=== PATIENT | male | born 1950 | race African-American/Black ===

== ENCOUNTER 2024-06-20 09:32 | Emergency (ER) | payer OTHER, MEDICAID ==
[~2024-06-20] VITALS: Ht 177.8 cm; Wt 127.0 kg
[2024-06-20 09:35] VITALS: O2SAT 99
[2024-06-20 10:15] LABS: BASOPHILS % 0.7 % (0.0-2.0); HEMATOCRIT. 40.4 % (42.0-52.0); HEMOGLOBIN. 13.2 g/dL (14.0-18.0); LYMPHOCYTES % 47.1 % (20.0-50.0); MEAN CORPUSCULAR HEMOGLOBIN 27.4 pg (28.0-32.0); MEAN CORPUSCULAR HGB CONC 32.7 g/dL (31.0-37.0); MEAN CORPUSCULAR VOLUME 83.9 fL (80.0-94.0); MEAN PLATELET VOLUME 9.1 fl (7.4-10.4); MONOCYTES % 6.9 % (2.0-8.0); NEUTROPHILS % 44.3 % (40.0-76.0); PLATELET 87 x1000/uL (130-400); RED BLOOD CELL COUNT 4.81 mill/uL (4.7-6.1); RED CELL DISTRIBUTION WIDTH 16.5 % (11.6-14.6); WHITE BLOOD COUNT 4.2 x1000/uL (4.5-11.0)
[2024-06-20 10:21] LABS: CARBON DIOXIDE 27 mEq/L (21-32); CHLORIDE 103 mEq/L (98-107); POTASSIUM 3.7 mEq/L (3.5-5.1); SODIUM 139 mEq/L (136-145)
[2024-06-20 10:22] LABS: CALCIUM 9.4 mg/dL (8.7-10.4)
[2024-06-20 10:27] LABS: CREATININE 1.6 mg/dL (0.6-1.3); GLUCOSE 138 mg/dL (70-105); UREA NITROGEN BLOOD 14 mg/dL (9-23)
[2024-06-20] MEDS: SODIUM CHLORIDE 0.9% 1,000 ML IV ONE (10:33)
[2024-06-20] MEDS: ONDANSETRON HCL 4MG/2ML INJ IV STA (10:33)
[2024-06-20] MEDS: MECLIZINE 25MG TABLET PO ONE (10:33)
[2024-06-20 10:47] LABS: TROPONIN I HIGH SENSITIVITY 55 ng/L (3.0-53)
[2024-06-20 14:16] VITALS: BP 139/76; PULSE 78; RESP 14; TEMP 36.9; O2SAT 96
[2024-06-20] MEDS: DIPHENHYDRAMINE 50MG/ML VIAL IV ONE (14:16)
== END 2024-06-20 14:10 | disposition short-term general hospital (02) ==
LOC: ER 09:32
DX: R42 Dizziness and giddiness (principal); E11.9 Type 2 diabetes mellitus without complications; I10 Essential (primary) hypertension; I67.82 Cerebral ischemia
CPT/HCPCS: 99285; 96374; 70450; 71045; 80048; 83880; 85025; 84484; 36415; 93005; J8597; J2405; J7030; 99284; A4606

== ENCOUNTER 2024-10-21 18:18 | Inpatient (IN) | payer OTHER, MEDICAID ==
[~2024-10-21] VITALS: Ht 175.3 cm; Wt 113.4 kg
[2024-10-21 19:05] LABS: HEMATOCRIT. 25.5 % (42.0-52.0); HEMOGLOBIN. 8.4 g/dL (14.0-18.0); MEAN PLATELET VOLUME 10.1 fl (7.4-10.4); RED BLOOD CELL COUNT 2.65 mill/uL (4.7-6.1); RED CELL DISTRIBUTION WIDTH 20.0 % (11.6-14.6)
[2024-10-21 19:09] LABS: PLATELET 13 x1000/uL (130-400)
[2024-10-21 19:13] LABS: TROPONIN I HIGH SENSITIVITY 35 ng/L (3.0-53); UREA NITROGEN BLOOD 47 mg/dL (9-23)
[2024-10-21 19:15] LABS: ASPARTATE AMINOTRANSFERASE 46 IU/L (<34); BILIRUBIN DIRECT 0.8 mg/dL (<=3.0)
[2024-10-21 19:16] LABS: BILIRUBIN TOTAL 1.7 mg/dL (0.1-1.0); PROTEIN TOTAL 8.4 g/dL (6.0-8.3)
[2024-10-21 19:21] LABS: CREATININE 3.2 mg/dL (0.6-1.3)
[2024-10-21 19:26] LABS: INR 1.1
[2024-10-21 19:45] LABS: BASOPHILS % MANUAL 1.0 % (0.0-2.0); LYMPHOCYTES % MANUAL 44.0 % (20.0-50.0); MONOCYTES % MANUAL 17.0 % (2.0-8.0); NEUTROPHILS % MANUAL 38.0 % (45.0-75.0)
[2024-10-21 19:47] LABS: PLATELET ESTIMATE MARKEDLY DECREASED
[2024-10-21] MEDS: SODIUM CHLORIDE 0.9% 500 ML IV ONE (20:03)
[2024-10-22] VITALS (7 sets, daily range): BP systolic 95–139; BP diastolic 48–64; PULSE 96–126; RESP 15–46; TEMP 36.5848–37.7; O2SAT 92–100
[2024-10-22] MEDS ORDERED: VANCOMYCIN 1G PREMIX 200 ML IV ONE (00:15)
[2024-10-22] MEDS: SODIUM CHLORIDE 0.9% (SEPSIS BOLUS) IV NR (00:48)
[2024-10-22] MEDS: PIPERACILLIN/TAZO 3.375G/50ML 50 ML IV NR (00:49)
[2024-10-22] MEDS: AZITHROMYCIN 500MG/250ML 250 ML IV NR (01:29)
[2024-10-22] MEDS ORDERED: CEFEPIME 1GM IN DEXT 5% 50ML IV SCH (01:45)
[2024-10-22] MEDS ORDERED: ONDANSETRON HCL 4MG/2ML INJ IV PRN (01:45)
[2024-10-22] MEDS ORDERED: MAGNESIUM/ALUMINUM HYDROXIDE/SIMETHICONE 30ML UDC PO PRN (01:45)
[2024-10-22] MEDS ORDERED: ACETAMINOPHEN 325MG TABLET PO PRN (01:45)
[2024-10-22] MEDS: SODIUM CHLORIDE 0.9% 1,000 ML IV SCH (04:21)
[2024-10-22] MEDS: VANCOMYCIN IV NR (04:30)
[2024-10-22] MEDS ORDERED: NALOXONE HCL 0.4MG/ML VIAL IV PRN (09:30)
[2024-10-22] MEDS: PANTOPRAZOLE SODIUM 40 MG/VIAL IV SCH (09:38)
[2024-10-22] MEDS: CEFEPIME 1GM PREMIX 50ML IV SCH (09:38)
[2024-10-22 12:46] LABS: BG BASE EXCESS -8.3 mmol/L (-2.0-3.0); BG CARBOXYHEMOGLOBIN 0.8 % (0.5-1.5); BG DEOXYHEMOGLOBIN 1.8 % (0.0-5.0); BG FLOW(L/min) 10.00 L/min; BG FRACTION INSPIRED OXYGEN 60; BG HCO3 ACT 15.4 mmol/L (21.0-28.0); BG METHEMOGLOBIN 0.3 % (0.5-1.5); BG OXYGEN SATURATION 98.2 % (94.0-98.0); BG OXYHEMOGLOBIN 97.1 % (94.0-98.0); BG PCO2 24.8 mmHg (35.0-48.0); BG PH 7.410 (7.350-7.450); BG PO2 114.8 mmHg (83.0-108.0); BG SAMPLE SITE LEFT RADIAL; BG TOTAL HEMOGLOBIN 7.3 g/dL (13.5-17.5); BG VENT MODE MASK - SIMPLE
[2024-10-22 17:37] LABS: HEMATOCRIT. 23.5 % (42.0-52.0); HEMOGLOBIN. 7.7 g/dL (14.0-18.0); MEAN PLATELET VOLUME 9.6 fl (7.4-10.4); RED BLOOD CELL COUNT 2.45 mill/uL (4.7-6.1); RED CELL DISTRIBUTION WIDTH 19.4 % (11.6-14.6)
[2024-10-22 17:44] LABS: CREATININE 2.8 mg/dL (0.6-1.3)
[2024-10-22 17:45] LABS: UREA NITROGEN BLOOD 51.0 mg/dL (9-23)
[2024-10-22 17:49] LABS: PLATELET 13 x1000/uL (130-400)
[2024-10-22 18:01] LABS: CLARITY URINE CLOUDY (CLEAR); COLOR URINE DARK YELLOW (YELLOW); GLUCOSE URINE NEGATIVE (NEGATIVE); KETONES URINE TRACE (NEGATIVE); LEUKOCYTE ESTERASE URINE NEGATIVE (NEGATIVE); NITRITE URINE NEGATIVE (NEGATIVE); OCCULT BLOOD URINE NEGATIVE (NEGATIVE); PH URINE 5.5 (4.5-8.0); PROTEIN URINE 1+ (NEGATIVE); SPECIFIC GRAVITY URINE 1.023 (1.005-1.030); UROBILINOGEN URINE 1.0 E.U./dL (0.2-1.0)
[2024-10-22 18:09] LABS: BACTERIA URINE 2+; RBC URINE 0-2 /hpf (0-2); SQUAMOUS EPITHELIAL CELL URINE RARE /lpf (RARE/1+); WBC URINE 0-2 /hpf (0-2)
[2024-10-22 18:12] LABS: FINE GRANULAR CASTS URINE 0-5 /lpf
[2024-10-22 18:15] LABS: *AMPHETAMINES SCREEN URINE NEGATIVE (NEGATIVE); *BARBITURATES SCREEN URINE NEGATIVE (NEGATIVE); *BENZODIAZEPINES SCREEN URINE NEGATIVE (NEGATIVE); *COCAINE SCREEN URINE NEGATIVE (NEGATIVE); CANNABINOID URINE SCREEN NEGATIVE (NEGATIVE); ECSTASY MDMA SCREEN URINE NEGATIVE (NEGATIVE); METHADONE URINE SCREEN NEGATIVE (NEGATIVE); OPIATES URINE SCREEN NEGATIVE (NEGATIVE); PHENCYCLIDINE URINE SCREEN NEGATIVE (NEGATIVE)
[2024-10-22 18:23] LABS: BAND% 9.0 % (1.0-6.0); LYMPHOCYTES % MANUAL 39.0 % (20.0-50.0); METAMYELOCYTES % 1.0 % (0-0); MONOCYTES % MANUAL 19.0 % (2.0-8.0); MYELOCYTES % 2.0 % (0-0); NEUTROPHILS % MANUAL 30.0 % (45.0-75.0); PLATELET ESTIMATE MARKEDLY DECREASED
[2024-10-22] MEDS: METHYLPREDNISOLONE SOD SUCC 40MG/ML (ACT-O-VIAL) IV SCH (19:16)
[2024-10-22] MEDS: FUROSEMIDE 40MG/4ML VIAL IVP SCH (19:17)
[2024-10-22] MEDS: FILGRASTIM-TBO 300 MCG/0.5 ML SYRINGE SQ NR (21:39)
[2024-10-22] MEDS: IPRATROPIUM/ALBUTEROL 0.5-3(2.5)MG/3ML NEB HHN SCH (22:26)
[2024-10-23] VITALS (34 sets, daily range): BP systolic 71–153; BP diastolic 37–102; PULSE 90–140; RESP 20–50; TEMP 36.6–39.3; O2SAT 50–100
[2024-10-23] MEDS: FUROSEMIDE 40MG/4ML VIAL IVP NR (00:45)
[2024-10-23] MEDS: HYDROCODONE/ACETAMINOPHEN 5/325MG TABLET PO PRN (01:15)
[2024-10-23] MEDS: SODIUM CHLORIDE 0.9% 1,000 ML IV SCH (01:16)
[2024-10-23] MEDS: AZITHROMYCIN 500MG/250ML 250 ML IV SCH (02:26)
[2024-10-23] MEDS: DIGOXIN 500MCG/2ML AMP IV NR (06:44)
[2024-10-23] MEDS: DILTIAZEM HCL 5MG/ML 5ML VIAL IV NR (06:45)
[2024-10-23 07:32] LABS: CREATININE 2.9 mg/dL (0.6-1.3); HEMATOCRIT. 22.8 % (42.0-52.0); HEMOGLOBIN. 7.5 g/dL (14.0-18.0); MEAN PLATELET VOLUME 9.7 fl (7.4-10.4); RED BLOOD CELL COUNT 2.35 mill/uL (4.7-6.1); RED CELL DISTRIBUTION WIDTH 20.2 % (11.6-14.6)
[2024-10-23 07:33] LABS: UREA NITROGEN BLOOD 53.0 mg/dL (9-23)
[2024-10-23 08:13] LABS: PLATELET 13 x1000/uL (130-400)
[2024-10-23] MEDS ORDERED: FUROSEMIDE 40MG/4ML VIAL IVP SCH ×2 (09:00)
[2024-10-23 09:04] LABS: BG BASE EXCESS -10.4 mmol/L (-2.0-3.0); BG CARBOXYHEMOGLOBIN 0.5 % (0.5-1.5); BG DEOXYHEMOGLOBIN 0.5 % (0.0-5.0); BG FRACTION INSPIRED OXYGEN 100; BG HCO3 ACT 14.3 mmol/L (21.0-28.0); BG METHEMOGLOBIN 0.3 % (0.5-1.5); BG OXYGEN SATURATION 99.5 % (94.0-98.0); BG OXYHEMOGLOBIN 98.7 % (94.0-98.0); BG PCO2 27.2 mmHg (35.0-48.0); BG PH 7.339 (7.350-7.450); BG PO2 206.2 mmHg (83.0-108.0); BG SAMPLE SITE RIGHT RADIAL; BG TOTAL HEMOGLOBIN 7.5 g/dL (13.5-17.5); BG TOTAL RESPIRATORY RATE 34 b/min; BG VENT MODE MASK - BIPAP; BG VENT RATE 16.0 set
[2024-10-23] MEDS ORDERED: AMIODARONE 150MG/100ML D5W 100 ML IV SCH (11:00)
[2024-10-23] MEDS ORDERED: AMIODARONE 360MG/200ML 200 ML IV SCH (11:10)
[2024-10-23 14:08] LABS: PHOSPHORUS 5.1 mg/dL (2.5-4.9)
[2024-10-23] MEDS: SODIUM BICARBONATE 100 MEQ in SODIUM CHLORIDE 0.45% 900 ML IV SCH (15:20)
[2024-10-23 18:11] LABS: BG BASE EXCESS -10.3 mmol/L (-2.0-3.0); BG CARBOXYHEMOGLOBIN 0.2 % (0.5-1.5); BG DEOXYHEMOGLOBIN 9.0 % (0.0-5.0); BG FLOW(L/min) 40.00 L/min; BG FRACTION INSPIRED OXYGEN 50; BG HCO3 ACT 13.5 mmol/L (21.0-28.0); BG METHEMOGLOBIN 0.3 % (0.5-1.5); BG OXYGEN SATURATION 91.0 % (94.0-98.0); BG OXYHEMOGLOBIN 90.5 % (94.0-98.0); BG PCO2 23.2 mmHg (35.0-48.0); BG PH 7.383 (7.350-7.450); BG PO2 67.0 mmHg (83.0-108.0); BG SAMPLE SITE LEFT RADIAL; BG TOTAL HEMOGLOBIN 7.8 g/dL (13.5-17.5); BG VENT MODE HIGH FLOW
[2024-10-23] MEDS ORDERED: PHENYLEPHRINE 50MG/250ML PMX 250 ML IV PRN (19:45)
[2024-10-23] MEDS: AMIODARONE 200MG TABLET PO SCH (21:00)
[2024-10-23] MEDS ORDERED: PROPOFOL 10MG/ML 100ML 100 ML IV SCH (21:30)
[2024-10-23 21:39] LABS: BAND% 11.0 % (1.0-6.0); LYMPHOCYTES % MANUAL 33.0 % (20.0-50.0); METAMYELOCYTES % 2.0 % (0-0); MONOCYTES % MANUAL 21.0 % (2.0-8.0); MYELOCYTES % 2.0 % (0-0); NEUTROPHILS % MANUAL 31.0 % (45.0-75.0); PLATELET ESTIMATE MARKEDLY DECREASED
[2024-10-23] MEDS: AMIODARONE 150MG/100ML D5W 100 ML IV SCH (22:34)
[2024-10-23] MEDS: PHENYLEPHRINE 50MG/250ML PMX 250 ML IV PRN (22:42)
[2024-10-23] MEDS: PROPOFOL 10MG/ML 100ML 100 ML IV PRN (22:58)
[2024-10-23] MEDS: AMIODARONE 360MG/200ML 200 ML IV SCH (23:03)
[2024-10-23] MEDS: NOREPINEPHRINE 32 MG in DEXT 5% WATER 218 ML IV PRN (23:39)
[2024-10-23] MEDS: MEROPENEM 1G/100ML 100 ML IV SCH (23:52)
[2024-10-23 23:56] LABS: BG BASE EXCESS -15.7 mmol/L (-2.0-3.0); BG CARBOXYHEMOGLOBIN 0.8 % (0.5-1.5); BG DEOXYHEMOGLOBIN 29.1 % (0.0-5.0); BG FRACTION INSPIRED OXYGEN 100; BG HCO3 ACT 14.3 mmol/L (21.0-28.0); BG METHEMOGLOBIN 0.3 % (0.5-1.5); BG OXYGEN SATURATION 70.6 % (94.0-98.0); BG OXYHEMOGLOBIN 69.8 % (94.0-98.0); BG PCO2 56.8 mmHg (35.0-48.0); BG PEEP (cmH2O) 5.0 cmH2O; BG PH 7.019 (7.350-7.450); BG PO2 58.7 mmHg (83.0-108.0); BG SAMPLE SITE LEFT BRACHIAL; BG TIDAL VOLUME(mL) 500.0 mL; BG TOTAL HEMOGLOBIN 7.5 g/dL (13.5-17.5); BG TOTAL RESPIRATORY RATE 20 b/min; BG VENT MODE VENT - AC; BG VENT RATE 20.0 set
[2024-10-24] VITALS (107 sets, daily range): BP systolic 66–129; BP diastolic 44–116; PULSE 82–142; RESP 12–53; TEMP 36.2–37.2; O2SAT 10–100
[2024-10-24 03:20] LABS: BG BASE EXCESS -17.1 mmol/L (-2.0-3.0); BG CARBOXYHEMOGLOBIN 0.5 % (0.5-1.5); BG DEOXYHEMOGLOBIN 21.5 % (0.0-5.0); BG FRACTION INSPIRED OXYGEN 100; BG HCO3 ACT 11.6 mmol/L (21.0-28.0); BG METHEMOGLOBIN 0.1 % (0.5-1.5); BG OXYGEN SATURATION 78.4 % (94.0-98.0); BG OXYHEMOGLOBIN 77.9 % (94.0-98.0); BG PCO2 39.6 mmHg (35.0-48.0); BG PEEP (cmH2O) 12.0 cmH2O; BG PH 7.086 (7.350-7.450); BG PO2 60.6 mmHg (83.0-108.0); BG SAMPLE SITE LEFT BRACHIAL; BG TOTAL HEMOGLOBIN 8.6 g/dL (13.5-17.5); BG TOTAL RESPIRATORY RATE 43 b/min; BG VENT MODE VENT - P/C; BG VENT RATE 32.0 set
[2024-10-24] MEDS: SODIUM BICARBONATE 8.4% 50MEQ/50ML SYR IV NR (03:40)
[2024-10-24] MEDS: SODIUM BICARBONATE 100 MEQ in SODIUM CHLORIDE 0.45% 900 ML IV SCH (03:40)
[2024-10-24 04:43] LABS: BG BASE EXCESS -11.6 mmol/L (-2.0-3.0); BG CARBOXYHEMOGLOBIN 0.9 % (0.5-1.5); BG DEOXYHEMOGLOBIN 15.7 % (0.0-5.0); BG FRACTION INSPIRED OXYGEN 100; BG HCO3 ACT 15.0 mmol/L (21.0-28.0); BG METHEMOGLOBIN 0.3 % (0.5-1.5); BG OXYGEN SATURATION 84.1 % (94.0-98.0); BG OXYHEMOGLOBIN 83.1 % (94.0-98.0); BG PCO2 36.8 mmHg (35.0-48.0); BG PEEP (cmH2O) 12.0 cmH2O; BG PH 7.228 (7.350-7.450); BG PO2 61.3 mmHg (83.0-108.0); BG SAMPLE SITE LEFT BRACHIAL; BG TOTAL HEMOGLOBIN 6.9 g/dL (13.5-17.5); BG TOTAL RESPIRATORY RATE 45 b/min; BG VENT MODE VENT - P/C; BG VENT RATE 32.0 set
[2024-10-24] MEDS: PHENYLEPHRINE 50MG/250ML PMX 250 ML IV PRN ×2 (04:44→10:33)
[2024-10-24] MEDS: VASOPRESSIN 20 UNIT in SODIUM CHLORIDE 0.9% 99 ML IV PRN (05:31)
[2024-10-24 06:51] LABS: MEAN PLATELET VOLUME 8.6 fl (7.4-10.4); RED BLOOD CELL COUNT 2.04 mill/uL (4.7-6.1); RED CELL DISTRIBUTION WIDTH 20.8 % (11.6-14.6)
[2024-10-24 07:07] LABS: CREATININE 3.7 mg/dL (0.6-1.3); TRIGLYCERIDE 258.0 mg/dL (0-150); UREA NITROGEN BLOOD 72.0 mg/dL (9-23)
[2024-10-24 07:34] LABS: HEMATOCRIT. 19.6 % (42.0-52.0); HEMOGLOBIN. 6.6 g/dL (14.0-18.0); PLATELET 29 x1000/uL (130-400)
[2024-10-24 10:13] LABS: BG BASE EXCESS -12.0 mmol/L (-2.0-3.0); BG CARBOXYHEMOGLOBIN 1.3 % (0.5-1.5); BG DEOXYHEMOGLOBIN 11.0 % (0.0-5.0); BG FRACTION INSPIRED OXYGEN 100; BG HCO3 ACT 15.4 mmol/L (21.0-28.0); BG METHEMOGLOBIN 0.3 % (0.5-1.5); BG OXYGEN SATURATION 88.8 % (94.0-98.0); BG OXYHEMOGLOBIN 87.4 % (94.0-98.0); BG PCO2 42.5 mmHg (35.0-48.0); BG PEEP (cmH2O) 12.0 cmH2O; BG PH 7.176 (7.350-7.450); BG PIP 26.0 cmH2O; BG PO2 72.5 mmHg (83.0-108.0); BG SAMPLE SITE RIGHT RADIAL; BG TOTAL HEMOGLOBIN 6.6 g/dL (13.5-17.5); BG VENT MODE VENT - P/C; BG VENT RATE 32.0 set
[2024-10-24 10:26] LABS: LYMPHOCYTES % MANUAL 70.0 % (20.0-50.0); MONOCYTES % MANUAL 28.0 % (2.0-8.0); NEUTROPHILS % MANUAL 2.0 % (45.0-75.0)
[2024-10-24 10:27] LABS: PLATELET ESTIMATE MARKEDLY DECREASED
[2024-10-24] MEDS: SODIUM CHLORIDE 0.9% 1,000 ML IV SCH (14:43)
[2024-10-24] MEDS: PHENYLEPHRINE 100 MG in DEXT 5% WATER 240 ML IV PRN (15:49)
[2024-10-24 15:51] LABS: HEMATOCRIT. 29.7 % (42.0-52.0); HEMOGLOBIN. 9.7 g/dL (14.0-18.0); MEAN PLATELET VOLUME 9.2 fl (7.4-10.4); RED BLOOD CELL COUNT 3.04 mill/uL (4.7-6.1); RED CELL DISTRIBUTION WIDTH 20.1 % (11.6-14.6)
[2024-10-24 16:10] LABS: PLATELET 26 x1000/uL (130-400)
[2024-10-24 17:00] LABS: LYMPHOCYTES % MANUAL 54.0 % (20.0-50.0); MONOCYTES % MANUAL 38.0 % (2.0-8.0); NEUTROPHILS % MANUAL 8.0 % (45.0-75.0); NUCLEATED RED BLOOD CELLS 5 /100 WBC; PLATELET ESTIMATE MARKEDLY DECREASED
[2024-10-24] MEDS: NOREPINEPHRINE 32 MG in DEXT 5% WATER 218 ML IV PRN (18:24)
[2024-10-24] MEDS: PROPOFOL 10MG/ML 100ML 100 ML IV PRN (23:05)
[2024-10-25] VITALS (107 sets, daily range): BP systolic 95–150; BP diastolic 51–91; PULSE 87–137; RESP 0–52; TEMP 36.4–37.3; O2SAT 74–100
[2024-10-25] MEDS: FENTANYL 2500MCG/250ML PMX 250 ML IV PRN (00:02)
[2024-10-25] MEDS: MIDAZOLAM 100MG/100ML PMX 100 ML IV PRN (00:25)
[2024-10-25 04:50] LABS: HEMATOCRIT. 23.1 % (42.0-52.0); HEMOGLOBIN. 7.9 g/dL (14.0-18.0); MEAN PLATELET VOLUME 9.0 fl (7.4-10.4); RED BLOOD CELL COUNT 2.42 mill/uL (4.7-6.1); RED CELL DISTRIBUTION WIDTH 20.6 % (11.6-14.6)
[2024-10-25 05:04] LABS: CREATININE 4.1 mg/dL (0.6-1.3); TRIGLYCERIDE 522 mg/dL (0-150); UREA NITROGEN BLOOD 87 mg/dL (9-23)
[2024-10-25 05:15] LABS: LACTATE DEHYDROGENASE 4096 IU/L (120-246)
[2024-10-25 05:24] LABS: PLATELET 18 x1000/uL (130-400)
[2024-10-25 05:25] LABS: PHOSPHORUS 8.6 mg/dL (2.5-4.9)
[2024-10-25 08:29] LABS: BG BASE EXCESS -10.3 mmol/L (-2.0-3.0); BG CARBOXYHEMOGLOBIN 0.7 % (0.5-1.5); BG DEOXYHEMOGLOBIN 14.1 % (0.0-5.0); BG FRACTION INSPIRED OXYGEN 100; BG HCO3 ACT 18.7 mmol/L (21.0-28.0); BG METHEMOGLOBIN 0.1 % (0.5-1.5); BG OXYGEN SATURATION 85.8 % (94.0-98.0); BG OXYHEMOGLOBIN 85.1 % (94.0-98.0); BG PCO2 55.3 mmHg (35.0-48.0); BG PEEP (cmH2O) 12.0 cmH2O; BG PH 7.148 (7.350-7.450); BG PO2 67.0 mmHg (83.0-108.0); BG SAMPLE SITE ALINE; BG TOTAL HEMOGLOBIN 12.4 g/dL (13.5-17.5); BG VENT MODE VENT - AC/PC; BG VENT RATE 32.0 set
[2024-10-25] MEDS: LANTHANUM CARBONATE 500MG CHEW TABLET PO SCH (11:51)
[2024-10-25] MEDS: SODIUM BICARBONATE 100 MEQ in SODIUM CHLORIDE 0.45% 900 ML IV SCH (11:52)
[2024-10-25] MEDS: CALCIUM ACETATE 667MG CAPSULE PO SCH (13:02)
[2024-10-25] MEDS: BLOOD SUGAR DIAGNOSTIC STRIP TEST SCH (17:00)
[2024-10-25] MEDS ORDERED: DEXTROSE 50% WATER 50ML SYRINGE IV PRN (17:15)
[2024-10-25] MEDS: INSULIN LISPRO 100 UNITS/ML SUBCUT SCH ×2 (17:32→21:04)
[2024-10-25 18:02] LABS: LYMPHOCYTES % MANUAL 50.0 % (20.0-50.0); MONOCYTES % MANUAL 32.0 % (2.0-8.0); NEUTROPHILS % MANUAL 18.0 % (45.0-75.0)
[2024-10-25 18:03] LABS: PLATELET ESTIMATE MARKEDLY DECREASED
[2024-10-25] MEDS ORDERED: BLOOD SUGAR DIAGNOSTIC STRIP TEST SCH (21:00)
[2024-10-26] VITALS (22 sets, daily range): BP systolic 66–167; BP diastolic 34–137; PULSE 0–131; RESP 0–52; TEMP 36.9; O2SAT 68–100
[2024-10-26] MEDS: EPINEPHRINE 10 MG in SODIUM CHLORIDE 0.9% 240 ML IV PRN (02:11)
[2024-10-26] MEDS ORDERED: ATROPINE SULFATE 1MG/10ML SYR ONE ×2 (03:59→10:35)
[2024-10-26] MEDS ORDERED: MEROPENEM 500MG/50ML 50 ML IV SCH (09:00)
== END 2024-10-26 05:50 | DRG 871 ==
LOC: ER 18:18 → 6WST 10-22 01:23 → ENRESERV 10-22 01:31 → 5EST 10-22 23:31 → MICUSO 10-23 19:27 → MICUNO 10-23 19:30
PROVIDERS: ADMIT Internal Medicine; ATTEND Internal Medicine
PROC: 30233R1 Transfusion of Nonautologous Platelets into Peripheral Vein, Percutaneous Approach (ICD-10-PCS; 2024-10-23)
PROC: 5A09357 Assistance with Respiratory Ventilation, Less than 24 Consecutive Hours, Continuous Positive Airway Pressure (ICD-10-PCS; 2024-10-23)
PROC: 5A0935A Assistance with Respiratory Ventilation, Less than 24 Consecutive Hours, High Flow/Velocity Cannula (ICD-10-PCS; 2024-10-23)
PROC: 5A1945Z Respiratory Ventilation, 24-96 Consecutive Hours (ICD-10-PCS; 2024-10-23)
PROC: 0BH17EZ Insertion of Endotracheal Airway into Trachea, Via Natural or Artificial Opening (ICD-10-PCS; 2024-10-23)
PROC: 02HV33Z Insertion of Infusion Device into Superior Vena Cava, Percutaneous Approach (ICD-10-PCS; principal; 2024-10-24)
PROC: B548ZZA Ultrasonography of Superior Vena Cava, Guidance (ICD-10-PCS; 2024-10-24)
PROC: 04HY32Z Insertion of Monitoring Device into Lower Artery, Percutaneous Approach (ICD-10-PCS; 2024-10-24)
PROC: 30233N1 Transfusion of Nonautologous Red Blood Cells into Peripheral Vein, Percutaneous Approach (ICD-10-PCS; 2024-10-24)
PROC: 5A12012 Performance of Cardiac Output, Single, Manual (ICD-10-PCS; 2024-10-26)
DX: A41.9 Sepsis, unspecified organism (principal); I50.41 Acute combined systolic (congestive) and diastolic (congestive) heart failure; N17.0 Acute kidney failure with tubular necrosis; J69.0 Pneumonitis due to inhalation of food and vomit; R65.21 Severe sepsis with septic shock; J80 Acute respiratory distress syndrome; J18.9 Pneumonia, unspecified organism; D61.818 Other pancytopenia; I13.0 Hypertensive heart and chronic kidney disease with heart failure and stage 1 through stage 4 chronic kidney disease, or unspecified chronic kidney disease; E87.4 Mixed disorder of acid-base balance; E87.0 Hyperosmolality and hypernatremia; N39.0 Urinary tract infection, site not specified; D64.9 Anemia, unspecified; Z20.822 Contact with and (suspected) exposure to COVID-19; E11.22 Type 2 diabetes mellitus with diabetic chronic kidney disease; N18.9 Chronic kidney disease, unspecified; I48.0 Paroxysmal atrial fibrillation; E86.1 Hypovolemia; I69.30 Unspecified sequelae of cerebral infarction
CPT/HCPCS: 31500; 31720; 36415; 36600; 71045; 74018; 74176; 80048; 80076; 80305; 81003; 82040; 82375; 82805; 82962; 83036; 83605; 83615; 83735; 83880; 84100; 84145; 84443; 84478; 84484; 84550; 85025; 86850; 86900; 86920; 87070; 87426; 87493; 93005; 93306; 93970; 94002; 94003; 94070; 94640; 94660; 94664; 98960; 99291; A4606; J0282; J0456; J0461; J0692; J1160; J1442; J1815; J1938; J2185; J2250; J2371; J2470; J2543; J2704; J2919; J3010; J3373; J3490; J7030; J7040; J7050; J7060; P9016; P9034